=== PATIENT | male | born 1935 | race Caucasian/White ===

== ENCOUNTER 2016-12-14 07:25 | Emergency (ER) | payer MEDICARE, BC ==
[~2016-12-14] VITALS: Ht 177.8 cm; Wt 77.1 kg
[2016-12-14] MEDS ORDERED: COZAAR100 MG PO (07:46)
[2016-12-14] MEDS ORDERED: LIPITOR10 MG PO (07:46)
== END 2016-12-14 08:40 | disposition short-term general hospital (02) ==
LOC: ER 07:25
DX: M54.5 Low back pain (principal)

== ENCOUNTER 2016-12-16 19:28 | Emergency (ER) | payer MEDICARE, BC ==
[~2016-12-16] VITALS: Ht 177.8 cm; Wt 77.1 kg
[~2016-12-16 19:28] MED LIST: COZAAR100 MG PO; LIPITOR10 MG PO
== END 2016-12-16 21:28 | disposition short-term general hospital (02) ==
LOC: ER 19:28
DX: K21.9 Gastro-esophageal reflux disease without esophagitis (principal); R07.9 Chest pain, unspecified; I10 Essential (primary) hypertension; E78.5 Hyperlipidemia, unspecified; Z79.899 Other long term (current) drug therapy; Z98.890 Other specified postprocedural states; Z90.89 Acquired absence of other organs

== ENCOUNTER → 2017-02-28 | Outpatient (CLI) | payer MEDICARE, BC | END | disposition short-term general hospital (02) | LOC: CLVASC 09:06 → CLNEUR 09:06 → CLVASC 14:50 | DX: Z47.89 Encounter for other orthopedic aftercare (principal) ==